=== PATIENT | male | born 1945 | race Two or more races ===

== ENCOUNTER 2022-03-11 13:36 | Inpatient (IN) | payer OTHER ==
[~2022-03-11] VITALS: Ht 170.2 cm; Wt 98.9 kg
[2022-03-11] MEDS ORDERED: ALBUTEROL SULF 2.5 MG/0.5ML(0.5%) NEB SOLN ONE (14:13)
[2022-03-11] MEDS ORDERED: IPRATROPIUM BROM 0.5 MG/2.5ML INH SOL ONE (14:13)
[2022-03-11] MEDS ORDERED: MAGNESIUM SULFATE 1GM/100ML 100 ML IV ONE (14:15)
[2022-03-11] MEDS ORDERED: VANCOMYCIN 1GM/250ML 250 ML IV ONE (14:15)
[2022-03-11] MEDS ORDERED: ALBUTEROL SULF 2.5 MG/0.5ML(0.5%) NEB SOLN NEB ONE (14:15)
[2022-03-11] MEDS ORDERED: CEFEPIME 1GM/ 50ML 50 ML IV ONE (14:15)
[2022-03-11] MEDS ORDERED: IPRATROPIUM BROM 0.5 MG/2.5ML INH SOL NEB ONE (14:15)
[2022-03-11] MEDS ORDERED: DexAMETHasone SOD PHOS 10MG/1ML VIAL INJ IV ONE (14:15)
[2022-03-11] MEDS: SODIUM CHLORIDE 0.9% 1,000 ML IV ONE ×4 (14:20→14:48)
[2022-03-11] MEDS: PHENYLEPHRINE IV 250 ML IV SCH ×2 (14:30→21:00)
[2022-03-11] MEDS ORDERED: PHENYLEPHRINE IV 250 ML IV ONE (14:33)
[2022-03-11 15:02] LABS: Hematocrit 42.4 % (41.0-53.0); Hemoglobin 13.2 g/dL (13.5-17.5); Mean Corpuscular Hemoglobin 27.9 pg (28.0-32.0); Mean Corpuscular Hgb Conc. 31.2 g/dL (32.0-36.0); Mean Corpuscular Volume 89.3 fL (80.0-100.0); Red Blood Cells 4.75 10^6/uL (4.5-5.90); Red Cell Distribution Width 15.4 % (11.8-14.3); White Blood Cell 16.1 10^3/uL (4.4-10.8)
[2022-03-11 15:24] LABS: Basophils % (manual) 0 (0.0-2.0); Blast Cells 0; Metamyelocytes % 0; Myelocytes % 0; Promyelocytes % 0; Reactive Lymphocytes 0
[2022-03-11 15:25] LABS: Albumin 1.6 g/dL (3.4-5.0); Anion Gap 19 (5-15); Calcium 8.7 mg/dL (8.5-10.1); Carbon Dioxide 14 mmol/L (21-32); Chloride 107 mmol/L (98-107); Glucose 241 mg/dL (74-106); Potassium 4.1 mmol/L (3.5-5.1); Sodium 140 mmol/L (136-145)
[2022-03-11 15:26] LABS: Free T3 0.92 pg/mL (2.3-4.2); Free T4 (Free Thyroxine) 0.6 ng/dL (0.89-1.76)
[2022-03-11 15:27] LABS: Alanine Aminotransferase 360 U/L (16-61); Aspartate Aminotransferase 510 U/L (15-37); GFR African American 14 mL/min; GFR Non-African American 12 mL/min
[2022-03-11 15:29] LABS: Alkaline Phosphatase 179 U/L (45-117); Bilirubin, Total 0.9 mg/dL (0.2-1.0); Total Protein 6.1 g/dL (6.4-8.2)
[2022-03-11 15:48] LABS: Lactic Acid w/Reflex 4.2 mmol/L (0.4-2.0)
[2022-03-11 15:53] LABS: Blood Urea Nitrogen 96 mg/dL (7-18)
[2022-03-11] MEDS ORDERED: AMIODARONE HCL 150 MG in D5W 5% 100 ML IV ONE (16:00)
[2022-03-11 17:03] LABS: Urine Blood 2+ /uL (Negative)
[2022-03-11] MEDS ORDERED: AMIODARONE 450mg/250ml AE 250 ML IV SCH (17:45)
[2022-03-11 17:53] LABS: Band Neutrophils % (manual) 25; Eosinophils % (manual) 1 (0-7); Lymphocytes % (manual) 12 (10.0-50.0); Monocytes % (manual) 5 (0-12)
[2022-03-11] MEDS ORDERED: MORPHINE SULFATE INJ 2 MG/ml SYRG IV PRN (18:30)
[2022-03-11] MEDS ORDERED: NITROGLYCERIN 0.4 MG SL TAB SL PRN (18:30)
[2022-03-11] MEDS ORDERED: AZITHROMYCIN 500MG/ 250ML 250 ML IV ONE (18:45)
[2022-03-11] MEDS: SODIUM CHLORIDE 0.9% 1,000 ML IV SCH (18:55)
[2022-03-11 19:00] LABS: INR 1.22 (0.9-1.15)
[2022-03-11] MEDS ORDERED: methylPREDNISolone SOD SUCC 125 MG/2 ML VL IV ONE (19:00)
[2022-03-11] MEDS ORDERED: IPRATROPIUM BROM 0.5 MG/2.5ML INH SOL NEB PRN (19:00)
[2022-03-11] MEDS ORDERED: DEXTROSE (50%) 50ML SYRG IV PRN (19:00)
[2022-03-11] MEDS ORDERED: FUROSEMIDE 40 MG/4 ML VIAL IV ONE (19:30)
[2022-03-11 19:39] LABS: Cholesterol 131 mg/dL (< 200); Triglycerides 699 mg/dL (< 150)
[2022-03-11 19:42] LABS: HDL Cholesterol 9 mg/dL (40-59)
[2022-03-11] MEDS ORDERED: DIGOXIN (250MCG/ML) 2 ML AMPULE IV ONE (20:15)
[2022-03-11 20:18] VITALS: BP 110/48
[2022-03-11 20:34] LABS: Lactic Acid w/Reflex 2.7 mmol/L (0.4-2.0)
[2022-03-11 21:35] LABS: INR 1.21 (0.9-1.15)
[2022-03-11] MEDS: IPRATROPIUM BROM 0.5 MG/2.5ML INH SOL NEB SCH (21:56)
[2022-03-11] MEDS: methylPREDNISolone SOD SUCC 125 MG/2 ML VL IV SCH (21:59)
[2022-03-11] MEDS ORDERED: ALBUTEROL SULF 2.5 MG/0.5ML(0.5%) NEB SOLN NEB SCH (22:00)
[2022-03-11] MEDS ORDERED: ETOMIDATE (2MG/ML) 20ML VIAL IV ONE (23:15)
[2022-03-11] MEDS ORDERED: ROCURONIUM 10MG/ML 10ML VIAL IV ONE (23:15)
[2022-03-11] MEDS ORDERED: MIDAZOLAM HCL 5 MG/ML-1ML VIAL IV ONE (23:15)
[2022-03-11 23:24] VITALS: BP 73/28
[2022-03-11] MEDS: MIDAZOLAM DRIP 50 mg/50mL 50 ML IV SCH (23:26)
[2022-03-11] MEDS: ENOXAPARIN SOD 100 MG/1 ML SYRINGE SC SCH (23:35)
[2022-03-11] MEDS: ACCU-CHEK COMFORT CURVE STRIP VI SCH (23:38)
[2022-03-11] MEDS: InsuLIN REG 1unit/0.01ml Soln (100units/ml) SC SCH (23:43)
[2022-03-12] VITALS (49 sets, daily range): BP systolic 88–154; BP diastolic 23–97
[2022-03-12] MEDS: PHENYLEPHRINE IV 250 ML IV SCH ×4 (00:44→16:02)
[2022-03-12] MEDS: AMIODARONE 450mg/250ml AE 250 ML IV SCH ×2 (01:01→16:01)
[2022-03-12] MEDS: SODIUM BICARBONATE 50ML VIAL 100 ML in SOD CHL 0.45% 1,000 ML IV SCH ×2 (03:30→14:58)
[2022-03-12 04:54] LABS: Hematocrit 35.9 % (41.0-53.0); Hemoglobin 11.2 g/dL (13.5-17.5); Mean Corpuscular Hgb Conc. 31.3 g/dL (32.0-36.0); Mean Corpuscular Volume 89.6 fL (80.0-100.0); Red Cell Distribution Width 15.9 % (11.8-14.3); White Blood Cell 26.7 10^3/uL (4.4-10.8)
[2022-03-12 04:58] LABS: Basophils % (manual) 0 (0.0-2.0); Blast Cells 0; Eosinophils % (manual) 0 (0-7); Metamyelocytes % 0; Promyelocytes % 0; Reactive Lymphocytes 0
[2022-03-12] MEDS: MIDAZOLAM DRIP 50 mg/50mL 50 ML IV SCH ×2 (05:06→16:02)
[2022-03-12 05:16] LABS: Albumin 1.5 g/dL (3.4-5.0); Calcium 7.5 mg/dL (8.5-10.1); Potassium 4.9 mmol/L (3.5-5.1)
[2022-03-12 05:19] LABS: BUN/Creatinine Ratio 22.8
[2022-03-12 05:30] LABS: Bilirubin, Total 0.9 mg/dL (0.2-1.0); Total Protein 4.7 g/dL (6.4-8.2)
[2022-03-12 06:52] LABS: Band Neutrophils % (manual) 34; Lymphocytes % (manual) 10 (10.0-50.0); Monocytes % (manual) 3 (0-12); Myelocytes % 2
[2022-03-12] MEDS ORDERED: AMIODARONE 450mg/250ml AE 250 ML IV SCH (07:00)
[2022-03-12] MEDS: SODIUM CHLORIDE 0.9% 1,000 ML IV SCH (07:35)
[2022-03-12] MEDS ORDERED: cefTRIAXone 1GM/50ML D5W 50 ML IV SCH (09:00)
[2022-03-12] MEDS ORDERED: AZITHROMYCIN 500MG/ 250ML 250 ML IV SCH (10:00)
[2022-03-12] MEDS: InsuLIN REG 1unit/0.01ml Soln (100units/ml) SC SCH ×2 (10:43→17:36)
[2022-03-12] MEDS: ACCU-CHEK COMFORT CURVE STRIP VI SCH ×3 (10:43→17:12)
[2022-03-12] MEDS: methylPREDNISolone SOD SUCC 125 MG/2 ML VL IV SCH (10:44)
[2022-03-12] MEDS ORDERED: SODIUM BICARBONATE 50ML VIAL 100 ML in SOD CHL 0.45% 1,000 ML IV SCH (12:00)
[2022-03-12] MEDS ORDERED: MEROPENEM 1GM IVPB 100 ML IV ONE (12:15)
[2022-03-12] MEDS ORDERED: PANTOPRAZOLE 40 MG/10 ML VIAL INJ IV ONE (12:15)
[2022-03-12] MEDS ORDERED: DEXTROSE (50%) 50ML SYRG IV PRN (12:15)
[2022-03-12] MEDS: LINEZOLID 600MG/300ML 300 ML IV SCH ×2 (12:52→22:04)
[2022-03-12] MEDS: DOPamine 1600MCG/ML D5W 250 ML IV SCH (12:53)
[2022-03-12 12:56] LABS: Alcohol, Urine < 3.0 mg/dL (0-10); Amphetamine Screen, Urine NEGATIVE (NEGATIVE); Barbiturate Scree,Urine NEGATIVE (NEGATIVE); Benzodiazephine Screen, Urine POSITIVE (NEGATIVE); Cannabinoid Screen, Urine NEGATIVE (NEGATIVE); Cocaine Screen, Urine NEGATIVE (NEGATIVE); Opiate Scree,Urine NEGATIVE (NEGATIVE); Phencyclidine Screen, Urine NEGATIVE (NEGATIVE)
[2022-03-12 14:14] LABS: Protein, Urine 213.2 mg/dL (0.0-11.9)
[2022-03-12] MEDS: OCTREOTIDE ACETATE 100 MCG/ML VL SUBCUT SCH ×2 (14:58→22:05)
[2022-03-12] MEDS: IPRATROPIUM BROM 0.5 MG/2.5ML INH SOL NEB SCH ×4 (16:57→22:17)
[2022-03-12] MEDS: ALBUTEROL SULF 2.5 MG/0.5ML(0.5%) NEB SOLN NEB PRN ×2 (19:05→22:17)
[2022-03-12] MEDS: MEROPENEM 1GM IVPB 100 ML IV SCH (22:03)
[2022-03-12] MEDS: ENOXAPARIN SOD 100 MG/1 ML SYRINGE SC SCH (22:04)
[2022-03-13] VITALS (90 sets, daily range): BP systolic 86–155; BP diastolic 51–86
[2022-03-13] MEDS: ACCU-CHEK COMFORT CURVE STRIP VI SCH ×5 (00:29→23:45)
[2022-03-13] MEDS: InsuLIN REG 1unit/0.01ml Soln (100units/ml) SC SCH ×5 (00:30→23:45)
[2022-03-13] MEDS: MIDAZOLAM DRIP 50 mg/50mL 50 ML IV SCH ×3 (02:00→20:00)
[2022-03-13] MEDS: SODIUM BICARBONATE 50ML VIAL 100 ML in SOD CHL 0.45% 1,000 ML IV SCH ×3 (04:00→18:09)
[2022-03-13] MEDS: PHENYLEPHRINE IV 250 ML IV SCH (05:00)
[2022-03-13] MEDS: OCTREOTIDE ACETATE 100 MCG/ML VL SUBCUT SCH ×3 (05:34→22:00)
[2022-03-13] MEDS: AMIODARONE 450mg/250ml AE 250 ML IV SCH (05:34)
[2022-03-13 05:47] LABS: Mean Corpuscular Hemoglobin 28.2 pg (28.0-32.0); Mean Corpuscular Hgb Conc. 32.2 g/dL (32.0-36.0); Mean Corpuscular Volume 87.6 fL (80.0-100.0); Red Blood Cells 3.88 10^6/uL (4.5-5.90); Red Cell Distribution Width 15.5 % (11.8-14.3); White Blood Cell 23.7 10^3/uL (4.4-10.8)
[2022-03-13 05:58] LABS: Basophils % (manual) 0 (0.0-2.0); Blast Cells 0; Eosinophils % (manual) 0 (0-7); Promyelocytes % 0; Reactive Lymphocytes 0
[2022-03-13] MEDS: IPRATROPIUM BROM 0.5 MG/2.5ML INH SOL NEB SCH ×5 (06:22→22:06)
[2022-03-13 06:33] LABS: Albumin 1.3 g/dL (3.4-5.0); BUN/Creatinine Ratio 32.1; Bilirubin, Total 0.7 mg/dL (0.2-1.0); Calcium 6.9 mg/dL (8.5-10.1); Total Protein 4.4 g/dL (6.4-8.2)
[2022-03-13 07:28] LABS: Band Neutrophils % (manual) 13; Lymphocytes % (manual) 15 (10.0-50.0); Metamyelocytes % 1; Monocytes % (manual) 2 (0-12); Myelocytes % 2
[2022-03-13] MEDS: NOREPINEPHRINE 8 MG/250ML KIT 250 ML IV SCH (09:17)
[2022-03-13] MEDS: MEROPENEM 1GM IVPB 100 ML IV SCH ×2 (09:17→23:12)
[2022-03-13] MEDS ORDERED: INSULIN LANTUS (GLARGINE) 1 /0.01ml (100units/ml) SC ONE (10:00)
[2022-03-13] MEDS: ALBUTEROL SULF 2.5 MG/0.5ML(0.5%) NEB SOLN NEB PRN ×3 (10:09→22:07)
[2022-03-13] MEDS: PANTOPRAZOLE 40 MG/10 ML VIAL INJ IV SCH (10:17)
[2022-03-13] MEDS: LINEZOLID 600MG/300ML 300 ML IV SCH ×2 (10:17→22:00)
[2022-03-13] MEDS: ALBUMIN 25% 100 ML IV SCH ×2 (10:19→17:27)
[2022-03-13] MEDS: DOPamine 1600MCG/ML D5W 250 ML IV SCH ×2 (11:30→20:00)
[2022-03-13] MEDS: CALCIUM ACETATE 667 MG CAP PO SCH ×2 (12:21→17:27)
[2022-03-13 13:48] LABS: Hepatitis B Surface Antibody Negative (Negative)
[2022-03-13 14:17] LABS: Hepatitis A Total Antibody Negative (Negative)
[2022-03-13 14:38] LABS: Hepatitis C Antibody Negative (Negative)
[2022-03-13] MEDS: INSULIN LANTUS (GLARGINE) 1 /0.01ml (100units/ml) SC SCH (22:00)
[2022-03-13] MEDS: ENOXAPARIN SOD 100 MG/1 ML SYRINGE SC SCH (22:00)
[2022-03-14] VITALS (107 sets, daily range): BP systolic 84–158; BP diastolic 47–88
[2022-03-14] MEDS ORDERED: ALBUMIN 25% 100 ML IV ONE (02:23)
[2022-03-14] MEDS: ALBUMIN 25% 100 ML IV SCH (02:23)
[2022-03-14 05:34] LABS: Hematocrit 29.4 % (41.0-53.0); Hemoglobin 9.7 g/dL (13.5-17.5); Mean Corpuscular Hemoglobin 28.5 pg (28.0-32.0); Mean Corpuscular Hgb Conc. 32.9 g/dL (32.0-36.0); Mean Corpuscular Volume 86.6 fL (80.0-100.0); Red Blood Cells 3.39 10^6/uL (4.5-5.90); Red Cell Distribution Width 15.8 % (11.8-14.3); White Blood Cell 24.7 10^3/uL (4.4-10.8)
[2022-03-14 05:38] LABS: Basophils % (manual) 0 (0.0-2.0); Blast Cells 0; Eosinophils % (manual) 0 (0-7); Metamyelocytes % 0; Promyelocytes % 0; Reactive Lymphocytes 0
[2022-03-14] MEDS: ACCU-CHEK COMFORT CURVE STRIP VI SCH ×3 (05:48→17:38)
[2022-03-14] MEDS: InsuLIN REG 1unit/0.01ml Soln (100units/ml) SC SCH ×3 (05:52→17:39)
[2022-03-14 05:54] LABS: Albumin 2.6 g/dL (3.4-5.0); BUN/Creatinine Ratio 34.8; Calcium 7.7 mg/dL (8.5-10.1); Potassium 3.1 mmol/L (3.5-5.1)
[2022-03-14 05:57] LABS: Bilirubin, Total 0.9 mg/dL (0.2-1.0); Total Protein 5.9 g/dL (6.4-8.2)
[2022-03-14] MEDS: IPRATROPIUM BROM 0.5 MG/2.5ML INH SOL NEB SCH ×5 (06:08→22:31)
[2022-03-14 06:11] LABS: Band Neutrophils % (manual) 4; Lymphocytes % (manual) 15 (10.0-50.0); Monocytes % (manual) 2 (0-12); Myelocytes % 1
[2022-03-14] MEDS: OCTREOTIDE ACETATE 100 MCG/ML VL SUBCUT SCH (06:18)
[2022-03-14] MEDS: INSULIN LANTUS (GLARGINE) 1 /0.01ml (100units/ml) SC SCH ×2 (06:18→21:45)
[2022-03-14] MEDS: SODIUM BICARBONATE 50ML VIAL 100 ML in SOD CHL 0.45% 1,000 ML IV SCH ×2 (06:45→13:43)
[2022-03-14] MEDS: MIDAZOLAM DRIP 50 mg/50mL 50 ML IV SCH ×2 (06:45→15:54)
[2022-03-14] MEDS: CALCIUM ACETATE 667 MG CAP PO SCH ×3 (08:00→17:24)
[2022-03-14] MEDS: NOREPINEPHRINE 8 MG/250ML KIT 250 ML IV SCH ×2 (09:00→23:15)
[2022-03-14] MEDS: PHENYLEPHRINE IV 250 ML IV SCH ×2 (09:10→09:30)
[2022-03-14] MEDS: AMIODARONE 450mg/250ml AE 250 ML IV SCH ×2 (09:30→10:51)
[2022-03-14] MEDS: PANTOPRAZOLE 40 MG/10 ML VIAL INJ IV SCH (09:33)
[2022-03-14] MEDS: LINEZOLID 600MG/300ML 300 ML IV SCH (09:33)
[2022-03-14] MEDS ORDERED: POTASSIUM CHL 20MEQ/100ML 100 ML IV ONE (10:45)
[2022-03-14] MEDS: MEROPENEM 1GM IVPB 100 ML IV SCH (10:50)
[2022-03-14] MEDS ORDERED: LABETALOL HCL 5 MG/ML 4ML SYRINGE IV PRN (12:30)
[2022-03-14] MEDS: POTASSIUM CHL 20MEQ/100ML 100 ML IV SCH ×2 (13:43→14:30)
[2022-03-14] MEDS: Nepro With Carb Steady 1 Liter Bottle GT SCH (15:09)
[2022-03-14] MEDS: ALBUTEROL SULF 2.5 MG/0.5ML(0.5%) NEB SOLN NEB PRN ×2 (18:21→22:31)
[2022-03-14] MEDS: MEROPENEM 500MG IVPB 50 ML IV SCH (21:48)
[2022-03-14] MEDS: ENOXAPARIN SOD 100 MG/1 ML SYRINGE SC SCH (21:48)
[2022-03-15] VITALS (101 sets, daily range): BP systolic 90–127; BP diastolic 38–73
[2022-03-15] MEDS: ACCU-CHEK COMFORT CURVE STRIP VI SCH ×5 (00:02→23:59)
[2022-03-15] MEDS: InsuLIN REG 1unit/0.01ml Soln (100units/ml) SC SCH ×4 (00:10→17:43)
[2022-03-15] MEDS: MIDAZOLAM DRIP 50 mg/50mL 50 ML IV SCH ×3 (02:30→16:20)
[2022-03-15 05:36] LABS: Hematocrit 34.3 % (41.0-53.0); Hemoglobin 10.8 g/dL (13.5-17.5); Mean Corpuscular Hemoglobin 27.4 pg (28.0-32.0); Mean Corpuscular Hgb Conc. 31.6 g/dL (32.0-36.0); Mean Corpuscular Volume 86.9 fL (80.0-100.0); Red Blood Cells 3.95 10^6/uL (4.5-5.90); Red Cell Distribution Width 15.5 % (11.8-14.3)
[2022-03-15] MEDS: IPRATROPIUM BROM 0.5 MG/2.5ML INH SOL NEB SCH ×5 (05:53→22:22)
[2022-03-15] MEDS: ALBUTEROL SULF 2.5 MG/0.5ML(0.5%) NEB SOLN NEB PRN ×2 (05:53→18:30)
[2022-03-15 05:59] LABS: Potassium 3.5 mmol/L (3.5-5.1)
[2022-03-15] MEDS: DOPamine 1600MCG/ML D5W 250 ML IV SCH (06:02)
[2022-03-15 06:11] LABS: Albumin 2.1 g/dL (3.4-5.0); BUN/Creatinine Ratio 45.8; Bilirubin, Total 1.3 mg/dL (0.2-1.0); Calcium 8.2 mg/dL (8.5-10.1); Total Protein 5.7 g/dL (6.4-8.2)
[2022-03-15 06:19] LABS: Basophils % (manual) 0 (0.0-2.0); Blast Cells 0; Eosinophils % (manual) 0 (0-7); Monocytes % (manual) 0 (0-12); Promyelocytes % 0; Reactive Lymphocytes 0
[2022-03-15] MEDS: INSULIN LANTUS (GLARGINE) 1 /0.01ml (100units/ml) SC SCH ×2 (06:59→22:15)
[2022-03-15 09:16] LABS: Band Neutrophils % (manual) 19; Lymphocytes % (manual) 20 (10.0-50.0); Metamyelocytes % 1; Myelocytes % 1
[2022-03-15] MEDS: PANTOPRAZOLE 40 MG/10 ML VIAL INJ IV SCH (09:37)
[2022-03-15] MEDS: CALCIUM ACETATE 667 MG CAP PO SCH ×3 (09:38→17:54)
[2022-03-15] MEDS: MEROPENEM 500MG IVPB 50 ML IV SCH ×2 (09:38→21:38)
[2022-03-15] MEDS: SODIUM BICARBONATE 50ML VIAL 100 ML in SOD CHL 0.45% 1,000 ML IV SCH ×2 (10:30→19:10)
[2022-03-15] MEDS: ENOXAPARIN SOD 100 MG/1 ML SYRINGE SC SCH (21:39)
[2022-03-16] VITALS (103 sets, daily range): BP systolic 91–127; BP diastolic 48–69
[2022-03-16] MEDS: InsuLIN REG 1unit/0.01ml Soln (100units/ml) SC SCH ×5 (00:15→23:57)
[2022-03-16] MEDS: MIDAZOLAM DRIP 50 mg/50mL 50 ML IV SCH ×2 (02:45→14:15)
[2022-03-16 05:21] LABS: Hemoglobin 9.9 g/dL (13.5-17.5); Mean Corpuscular Hemoglobin 27.6 pg (28.0-32.0); Mean Corpuscular Hgb Conc. 32.1 g/dL (32.0-36.0); Mean Corpuscular Volume 86.2 fL (80.0-100.0); Red Cell Distribution Width 15.4 % (11.8-14.3); White Blood Cell 25.2 10^3/uL (4.4-10.8)
[2022-03-16 05:27] LABS: Basophils % (manual) 0 (0.0-2.0); Blast Cells 0; Eosinophils % (manual) 0 (0-7); Metamyelocytes % 0; Promyelocytes % 0; Reactive Lymphocytes 0
[2022-03-16 05:44] LABS: Albumin 1.8 g/dL (3.4-5.0); BUN/Creatinine Ratio 55.5; Calcium 8.5 mg/dL (8.5-10.1); Potassium 3.6 mmol/L (3.5-5.1)
[2022-03-16 05:47] LABS: Total Protein 5.4 g/dL (6.4-8.2)
[2022-03-16] MEDS: ACCU-CHEK COMFORT CURVE STRIP VI SCH ×4 (06:00→23:54)
[2022-03-16] MEDS: IPRATROPIUM BROM 0.5 MG/2.5ML INH SOL NEB SCH ×5 (06:21→22:16)
[2022-03-16] MEDS: ALBUTEROL SULF 2.5 MG/0.5ML(0.5%) NEB SOLN NEB PRN ×4 (06:21→22:16)
[2022-03-16] MEDS: INSULIN LANTUS (GLARGINE) 1 /0.01ml (100units/ml) SC SCH ×2 (06:28→22:19)
[2022-03-16] MEDS: NOREPINEPHRINE 8 MG/250ML KIT 250 ML IV SCH (09:00)
[2022-03-16] MEDS: PANTOPRAZOLE 40 MG/10 ML VIAL INJ IV SCH (10:17)
[2022-03-16] MEDS: CALCIUM ACETATE 667 MG CAP PO SCH ×3 (10:17→18:03)
[2022-03-16] MEDS: MEROPENEM 500MG IVPB 50 ML IV SCH ×2 (10:18→22:16)
[2022-03-16 10:28] LABS: Band Neutrophils % (manual) 27; Lymphocytes % (manual) 7 (10.0-50.0); Monocytes % (manual) 2 (0-12); Myelocytes % 1
[2022-03-16] MEDS: DOPamine 1600MCG/ML D5W 250 ML IV SCH ×2 (11:30→18:39)
[2022-03-16] MEDS: D5W 5% 1,000 ML IV SCH ×2 (12:46→23:50)
[2022-03-16] MEDS: Nepro With Carb Steady 1 Liter Bottle GT SCH (21:09)
[2022-03-16] MEDS: ENOXAPARIN SOD 100 MG/1 ML SYRINGE SC SCH (22:16)
[2022-03-17] VITALS (104 sets, daily range): BP systolic 83–127; BP diastolic 36–64
[2022-03-17] MEDS: MIDAZOLAM DRIP 50 mg/50mL 50 ML IV SCH ×2 (00:53→09:25)
[2022-03-17] MEDS: D5W 5% 1,000 ML IV SCH (02:14)
[2022-03-17] MEDS: IPRATROPIUM BROM 0.5 MG/2.5ML INH SOL NEB SCH ×5 (06:27→22:53)
[2022-03-17] MEDS: ALBUTEROL SULF 2.5 MG/0.5ML(0.5%) NEB SOLN NEB PRN ×5 (06:27→22:52)
[2022-03-17] MEDS: ACCU-CHEK COMFORT CURVE STRIP VI SCH ×3 (06:29→17:39)
[2022-03-17] MEDS: InsuLIN REG 1unit/0.01ml Soln (100units/ml) SC SCH ×3 (06:37→17:39)
[2022-03-17] MEDS: INSULIN LANTUS (GLARGINE) 1 /0.01ml (100units/ml) SC SCH ×2 (06:49→23:00)
[2022-03-17] MEDS: CALCIUM ACETATE 667 MG CAP PO SCH ×3 (08:17→18:25)
[2022-03-17] MEDS: NOREPINEPHRINE 8 MG/250ML KIT 250 ML IV SCH (09:00)
[2022-03-17] MEDS: MEROPENEM 500MG IVPB 50 ML IV SCH ×2 (09:24→22:00)
[2022-03-17] MEDS: PANTOPRAZOLE 40 MG/10 ML VIAL INJ IV SCH (09:24)
[2022-03-17 14:59] LABS: INR 1.1 (0.9-1.15); Partial Thromboplastin Time 29.4 sec (24.6-33.4)
[2022-03-17] MEDS: FREE WATER GT SCH ×2 (18:26→22:53)
[2022-03-17] MEDS ORDERED: LIDOCAINE 1% (LOCAL ANESTH.) PF 5ml SDV ID ONE (18:45)
[2022-03-17] MEDS: ENOXAPARIN SOD 100 MG/1 ML SYRINGE SC SCH (22:00)
[2022-03-17] MEDS: SODIUM CHLOR 0.9% PF (SALINE LOCK) 10ML VIAL/SYR IV SCH (22:21)
[2022-03-18] VITALS (104 sets, daily range): BP systolic 92–166; BP diastolic 40–62
[2022-03-18] MEDS: MEROPENEM 500MG IVPB 50 ML IV SCH ×2 (00:42→09:22)
[2022-03-18] MEDS: FREE WATER GT SCH ×4 (06:00→23:46)
[2022-03-18] MEDS: ACCU-CHEK COMFORT CURVE STRIP VI SCH ×4 (06:00→17:24)
[2022-03-18] MEDS: ALBUTEROL SULF 2.5 MG/0.5ML(0.5%) NEB SOLN NEB PRN ×4 (06:17→22:35)
[2022-03-18] MEDS: IPRATROPIUM BROM 0.5 MG/2.5ML INH SOL NEB SCH ×5 (06:17→22:35)
[2022-03-18] MEDS: INSULIN LANTUS (GLARGINE) 1 /0.01ml (100units/ml) SC SCH ×2 (07:00→23:00)
[2022-03-18] MEDS: InsuLIN REG 1unit/0.01ml Soln (100units/ml) SC SCH ×4 (07:00→17:24)
[2022-03-18 08:08] LABS: Hematocrit 31.2 % (41.0-53.0); Hemoglobin 9.8 g/dL (13.5-17.5); Mean Corpuscular Hemoglobin 27.6 pg (28.0-32.0); Mean Corpuscular Hgb Conc. 31.2 g/dL (32.0-36.0); Mean Corpuscular Volume 88.3 fL (80.0-100.0); Red Blood Cells 3.54 10^6/uL (4.5-5.90); Red Cell Distribution Width 15.6 % (11.8-14.3); White Blood Cell 24.1 10^3/uL (4.4-10.8)
[2022-03-18 08:24] LABS: BUN/Creatinine Ratio 55.9; Calcium 8.7 mg/dL (8.5-10.1); Potassium 4.2 mmol/L (3.5-5.1)
[2022-03-18 08:25] LABS: Basophils % (manual) 0 (0.0-2.0); Blast Cells 0; Eosinophils % (manual) 0 (0-7); Metamyelocytes % 0; Myelocytes % 0; Promyelocytes % 0; Reactive Lymphocytes 0
[2022-03-18] MEDS: CALCIUM ACETATE 667 MG CAP PO SCH ×3 (08:50→17:27)
[2022-03-18] MEDS: NOREPINEPHRINE 8 MG/250ML KIT 250 ML IV SCH ×2 (09:00→13:39)
[2022-03-18 09:18] LABS: Band Neutrophils % (manual) 4; Lymphocytes % (manual) 8 (10.0-50.0); Monocytes % (manual) 7 (0-12)
[2022-03-18] MEDS: PANTOPRAZOLE 40 MG/10 ML VIAL INJ IV SCH (09:22)
[2022-03-18] MEDS: SODIUM CHLOR 0.9% PF (SALINE LOCK) 10ML VIAL/SYR IV SCH ×2 (09:22→22:07)
[2022-03-18] MEDS: DOPamine 1600MCG/ML D5W 250 ML IV SCH (11:30)
[2022-03-18] MEDS: D5W 5% 1,000 ML IV SCH (12:30)
[2022-03-18] MEDS: CEFTRIAXONE SODIUM 2 GM in D5W 5% 50 ML IV SCH (13:34)
[2022-03-18] MEDS: ENOXAPARIN SOD 100 MG/1 ML SYRINGE SC SCH (22:00)
[2022-03-18] MEDS: MIDAZOLAM DRIP 50 mg/50mL 50 ML IV SCH (22:35)
[2022-03-19] VITALS (102 sets, daily range): BP systolic 97–133; BP diastolic 51–66
[2022-03-19] MEDS: ACCU-CHEK COMFORT CURVE STRIP VI SCH ×5 (00:20→23:34)
[2022-03-19 05:21] LABS: Hematocrit 30.7 % (41.0-53.0); Hemoglobin 9.7 g/dL (13.5-17.5); Mean Corpuscular Hemoglobin 28.1 pg (28.0-32.0); Mean Corpuscular Hgb Conc. 31.7 g/dL (32.0-36.0); Mean Corpuscular Volume 88.8 fL (80.0-100.0); Red Blood Cells 3.46 10^6/uL (4.5-5.90); Red Cell Distribution Width 15.5 % (11.8-14.3); White Blood Cell 22.6 10^3/uL (4.4-10.8)
[2022-03-19 05:35] LABS: BUN/Creatinine Ratio 53.5; Calcium 8.9 mg/dL (8.5-10.1)
[2022-03-19 05:46] LABS: Basophils % (manual) 0 (0.0-2.0); Blast Cells 0; Promyelocytes % 0
[2022-03-19] MEDS: FREE WATER GT SCH ×4 (06:00→23:46)
[2022-03-19] MEDS: ALBUTEROL SULF 2.5 MG/0.5ML(0.5%) NEB SOLN NEB PRN ×5 (06:17→22:20)
[2022-03-19] MEDS: IPRATROPIUM BROM 0.5 MG/2.5ML INH SOL NEB SCH ×5 (06:17→22:20)
[2022-03-19] MEDS: InsuLIN REG 1unit/0.01ml Soln (100units/ml) SC SCH ×5 (07:15→23:34)
[2022-03-19] MEDS: INSULIN LANTUS (GLARGINE) 1 /0.01ml (100units/ml) SC SCH ×2 (07:15→21:42)
[2022-03-19 07:48] LABS: Band Neutrophils % (manual) 8; Eosinophils % (manual) 2 (0-7); Lymphocytes % (manual) 7 (10.0-50.0); Metamyelocytes % 1; Monocytes % (manual) 4 (0-12); Myelocytes % 1; Reactive Lymphocytes 2
[2022-03-19] MEDS: D5W 5% 1,000 ML IV SCH (08:00)
[2022-03-19] MEDS: SODIUM CHLOR 0.9% PF (SALINE LOCK) 10ML VIAL/SYR IV SCH ×2 (10:06→21:42)
[2022-03-19] MEDS: CALCIUM ACETATE 667 MG CAP PO SCH ×3 (10:10→17:34)
[2022-03-19] MEDS: PANTOPRAZOLE 40 MG/10 ML VIAL INJ IV SCH (10:10)
[2022-03-19] MEDS: DOPamine 1600MCG/ML D5W 250 ML IV SCH ×2 (11:27→12:30)
[2022-03-19] MEDS: CEFTRIAXONE SODIUM 2 GM in D5W 5% 50 ML IV SCH (14:31)
[2022-03-19] MEDS: Nepro With Carb Steady 1 Liter Bottle GT SCH (15:26)
[2022-03-19] MEDS: MIDAZOLAM DRIP 50 mg/50mL 50 ML IV SCH (20:53)
[2022-03-19] MEDS: ENOXAPARIN SOD 100 MG/1 ML SYRINGE SC SCH (21:41)
[2022-03-20] VITALS (107 sets, daily range): BP systolic 85–126; BP diastolic 41–65
[2022-03-20] MEDS: D5W 5% 1,000 ML IV SCH ×2 (02:31→21:11)
[2022-03-20] MEDS: MIDAZOLAM DRIP 50 mg/50mL 50 ML IV SCH ×3 (02:32→23:40)
[2022-03-20 05:18] LABS: Hematocrit 28.7 % (41.0-53.0); Mean Corpuscular Hemoglobin 27.9 pg (28.0-32.0); Mean Corpuscular Hgb Conc. 31.3 g/dL (32.0-36.0); Mean Corpuscular Volume 89.3 fL (80.0-100.0); Red Blood Cells 3.22 10^6/uL (4.5-5.90); Red Cell Distribution Width 15.5 % (11.8-14.3); White Blood Cell 16.5 10^3/uL (4.4-10.8)
[2022-03-20 05:34] LABS: Albumin 1.4 g/dL (3.4-5.0); Calcium 8.5 mg/dL (8.5-10.1); Potassium 3.8 mmol/L (3.5-5.1)
[2022-03-20 05:38] LABS: BUN/Creatinine Ratio 50.7; Bilirubin, Total 0.6 mg/dL (0.2-1.0); Total Protein 5.6 g/dL (6.4-8.2)
[2022-03-20 05:39] LABS: Basophils % (manual) 0 (0.0-2.0); Blast Cells 0; Reactive Lymphocytes 0
[2022-03-20] MEDS: IPRATROPIUM BROM 0.5 MG/2.5ML INH SOL NEB SCH ×3 (05:54→13:48)
[2022-03-20] MEDS: ALBUTEROL SULF 2.5 MG/0.5ML(0.5%) NEB SOLN NEB PRN ×3 (05:54→13:48)
[2022-03-20] MEDS: InsuLIN REG 1unit/0.01ml Soln (100units/ml) SC SCH ×3 (06:21→18:23)
[2022-03-20] MEDS: ACCU-CHEK COMFORT CURVE STRIP VI SCH ×3 (06:21→18:18)
[2022-03-20] MEDS: INSULIN LANTUS (GLARGINE) 1 /0.01ml (100units/ml) SC SCH ×2 (06:22→21:10)
[2022-03-20] MEDS: FREE WATER GT SCH ×4 (06:22→23:41)
[2022-03-20 07:46] LABS: Band Neutrophils % (manual) 12; Eosinophils % (manual) 4 (0-7); Lymphocytes % (manual) 20 (10.0-50.0); Metamyelocytes % 1; Monocytes % (manual) 3 (0-12); Myelocytes % 1; Promyelocytes % 1
[2022-03-20] MEDS: NOREPINEPHRINE 8 MG/250ML KIT 250 ML IV SCH (08:48)
[2022-03-20] MEDS: SODIUM CHLOR 0.9% PF (SALINE LOCK) 10ML VIAL/SYR IV SCH ×2 (08:48→21:10)
[2022-03-20] MEDS: CALCIUM ACETATE 667 MG CAP PO SCH ×3 (08:48→18:24)
[2022-03-20] MEDS: ENOXAPARIN SOD 100 MG/1 ML SYRINGE SC SCH ×2 (08:48→21:09)
[2022-03-20] MEDS: PANTOPRAZOLE 40 MG/10 ML VIAL INJ IV SCH (08:48)
[2022-03-20] MEDS: CEFTRIAXONE SODIUM 2 GM in D5W 5% 50 ML IV SCH (15:10)
[2022-03-20] MEDS: DOPamine 1600MCG/ML D5W 250 ML IV SCH (23:40)
[2022-03-21] VITALS (106 sets, daily range): BP systolic 79–125; BP diastolic 40–64
[2022-03-21] MEDS: InsuLIN REG 1unit/0.01ml Soln (100units/ml) SC SCH ×4 (00:20→23:51)
[2022-03-21] MEDS: ACCU-CHEK COMFORT CURVE STRIP VI SCH ×4 (00:20→23:51)
[2022-03-21] MEDS: NOREPINEPHRINE 8 MG/250ML KIT 250 ML IV SCH (03:16)
[2022-03-21 04:54] LABS: Basophils # (auto) 0.2 10 ^3/uL (0-0.2); Basophils % (auto) 1.1 % (0.0-2.0); Eosinophils # (auto) 0.3 10 ^3/uL (0-0.8); Hematocrit 28.9 % (41.0-53.0); Hemoglobin 9.1 g/dL (13.5-17.5); Lymphocytes # (auto) 2.2 10 ^3/uL (0.4-5.4); Lymphocytes % (auto) 13.7 % (10.0-50.0); Mean Corpuscular Hgb Conc. 31.4 g/dL (32.0-36.0); Mean Corpuscular Volume 89.1 fL (80.0-100.0); Monocytes # (auto) 0.9 10 ^3/uL (0-1.3); Monocytes % (auto) 5.7 % (0.0-12.0); Neutrophils # (auto) 12.7 10 ^3/uL (1.6-8.6); Neutrophils % (auto) 77.5 % (37.0-80.0); Red Blood Cells 3.24 10^6/uL (4.5-5.90); Red Cell Distribution Width 15.7 % (11.8-14.3); White Blood Cell 16.4 10^3/uL (4.4-10.8)
[2022-03-21 05:11] LABS: BUN/Creatinine Ratio 43.8; Calcium 8.4 mg/dL (8.5-10.1); Potassium 3.6 mmol/L (3.5-5.1)
[2022-03-21] MEDS: FREE WATER GT SCH ×3 (05:51→17:41)
[2022-03-21] MEDS: ALBUTEROL SULF 2.5 MG/0.5ML(0.5%) NEB SOLN NEB PRN ×5 (05:58→21:57)
[2022-03-21] MEDS: IPRATROPIUM BROM 0.5 MG/2.5ML INH SOL NEB SCH ×5 (05:58→21:57)
[2022-03-21] MEDS: INSULIN LANTUS (GLARGINE) 1 /0.01ml (100units/ml) SC SCH ×2 (06:00→21:37)
[2022-03-21] MEDS: PANTOPRAZOLE 40 MG/10 ML VIAL INJ IV SCH (09:41)
[2022-03-21] MEDS: ENOXAPARIN SOD 100 MG/1 ML SYRINGE SC SCH ×2 (09:41→21:37)
[2022-03-21] MEDS: CALCIUM ACETATE 667 MG CAP PO SCH ×2 (09:42→12:00)
[2022-03-21] MEDS: SODIUM CHLOR 0.9% PF (SALINE LOCK) 10ML VIAL/SYR IV SCH ×2 (09:42→21:37)
[2022-03-21] MEDS ORDERED: levoFLOXacin 500MG 100 ML IV ONE (12:30)
[2022-03-21] MEDS: CEFTRIAXONE SODIUM 2 GM in D5W 5% 50 ML IV SCH (13:48)
[2022-03-22] VITALS (108 sets, daily range): BP systolic 90–121; BP diastolic 43–82
[2022-03-22] MEDS: FREE WATER GT SCH ×4 (00:12→18:01)
[2022-03-22] MEDS: MIDAZOLAM DRIP 50 mg/50mL 50 ML IV SCH (02:12)
[2022-03-22 05:19] LABS: Basophils # (auto) 0.2 10 ^3/uL (0-0.2); Basophils % (auto) 1.4 % (0.0-2.0); Eosinophils # (auto) 0.1 10 ^3/uL (0-0.8); Eosinophils % (auto) 0.7 % (0.0-7.0); Hematocrit 29.7 % (41.0-53.0); Hemoglobin 9.7 g/dL (13.5-17.5); Lymphocytes # (auto) 1.6 10 ^3/uL (0.4-5.4); Lymphocytes % (auto) 11.9 % (10.0-50.0); Mean Corpuscular Hemoglobin 28.6 pg (28.0-32.0); Mean Corpuscular Hgb Conc. 32.6 g/dL (32.0-36.0); Mean Corpuscular Volume 87.7 fL (80.0-100.0); Monocytes # (auto) 0.7 10 ^3/uL (0-1.3); Neutrophils # (auto) 11.1 10 ^3/uL (1.6-8.6); Nucleated Red Blood Cells % 0.2 %; Red Blood Cells 3.39 10^6/uL (4.5-5.90); Red Cell Distribution Width 15.3 % (11.8-14.3); White Blood Cell 13.7 10^3/uL (4.4-10.8)
[2022-03-22 05:32] LABS: BUN/Creatinine Ratio 40.3; Calcium 8.3 mg/dL (8.5-10.1)
[2022-03-22] MEDS: ACCU-CHEK COMFORT CURVE STRIP VI SCH ×3 (05:59→17:37)
[2022-03-22] MEDS: InsuLIN REG 1unit/0.01ml Soln (100units/ml) SC SCH ×3 (05:59→17:37)
[2022-03-22] MEDS: INSULIN LANTUS (GLARGINE) 1 /0.01ml (100units/ml) SC SCH ×2 (06:00→22:00)
[2022-03-22] MEDS: IPRATROPIUM BROM 0.5 MG/2.5ML INH SOL NEB SCH ×5 (06:21→21:52)
[2022-03-22] MEDS: CALCIUM ACETATE 667 MG CAP PO SCH ×3 (08:26→18:01)
[2022-03-22] MEDS: NOREPINEPHRINE 8 MG/250ML KIT 250 ML IV SCH (08:26)
[2022-03-22] MEDS ORDERED: levoFLOXacin 500MG 100 ML IV SCH (10:00)
[2022-03-22] MEDS: ENOXAPARIN SOD 100 MG/1 ML SYRINGE SC SCH ×2 (10:55→20:57)
[2022-03-22] MEDS: PANTOPRAZOLE 40 MG/10 ML VIAL INJ IV SCH (10:55)
[2022-03-22] MEDS: SODIUM CHLOR 0.9% PF (SALINE LOCK) 10ML VIAL/SYR IV SCH ×2 (10:55→20:57)
[2022-03-22] MEDS ORDERED: SODIUM CHLORIDE 0.9% 500 ML IV ONE (14:15)
[2022-03-22] MEDS: SODIUM CHLORIDE 0.9% 1,000 ML IV SCH (15:27)
[2022-03-22] MEDS: CEFTRIAXONE SODIUM 2 GM in D5W 5% 50 ML IV SCH (15:28)
[2022-03-22] MEDS: ALBUTEROL SULF 2.5 MG/0.5ML(0.5%) NEB SOLN NEB PRN ×2 (17:57→21:52)
[2022-03-22] MEDS: Nepro With Carb Steady 1 Liter Bottle GT SCH (18:16)
[2022-03-23] VITALS (105 sets, daily range): BP systolic 84–133; BP diastolic 44–75
[2022-03-23] MEDS: FREE WATER GT SCH ×4 (00:05→18:11)
[2022-03-23] MEDS: ACCU-CHEK COMFORT CURVE STRIP VI SCH ×4 (00:06→18:08)
[2022-03-23] MEDS: SODIUM CHLORIDE 0.9% 1,000 ML IV SCH (02:34)
[2022-03-23] MEDS: NOREPINEPHRINE 8 MG/250ML KIT 250 ML IV SCH (04:53)
[2022-03-23] MEDS: InsuLIN REG 1unit/0.01ml Soln (100units/ml) SC SCH ×4 (06:00→18:00)
[2022-03-23] MEDS: IPRATROPIUM BROM 0.5 MG/2.5ML INH SOL NEB SCH ×5 (06:14→22:01)
[2022-03-23] MEDS: ALBUTEROL SULF 2.5 MG/0.5ML(0.5%) NEB SOLN NEB PRN ×4 (06:14→18:34)
[2022-03-23] MEDS: INSULIN LANTUS (GLARGINE) 1 /0.01ml (100units/ml) SC SCH (06:21)
[2022-03-23 06:37] LABS: Basophils # (auto) 0.1 10 ^3/uL (0-0.2); Eosinophils # (auto) 0.2 10 ^3/uL (0-0.8); Hemoglobin 8.2 g/dL (13.5-17.5); White Blood Cell 13.9 10^3/uL (4.4-10.8)
[2022-03-23 06:40] LABS: Basophils % (auto) 0.7 % (0.0-2.0); Eosinophils % (auto) 1.1 % (0.0-7.0); Hematocrit 25.9 % (41.0-53.0); Lymphocytes # (auto) 2.2 10 ^3/uL (0.4-5.4); Lymphocytes % (auto) 15.6 % (10.0-50.0); Mean Corpuscular Hemoglobin 27.7 pg (28.0-32.0); Mean Corpuscular Hgb Conc. 31.5 g/dL (32.0-36.0); Mean Corpuscular Volume 87.8 fL (80.0-100.0); Monocytes # (auto) 0.7 10 ^3/uL (0-1.3); Monocytes % (auto) 4.9 % (0.0-12.0); Neutrophils # (auto) 10.8 10 ^3/uL (1.6-8.6); Neutrophils % (auto) 77.7 % (37.0-80.0); Nucleated Red Blood Cells % 0.1 %; Red Blood Cells 2.95 10^6/uL (4.5-5.90); Red Cell Distribution Width 15.2 % (11.8-14.3)
[2022-03-23 07:12] LABS: Albumin 1.3 g/dL (3.4-5.0); Potassium 3.7 mmol/L (3.5-5.1)
[2022-03-23 07:16] LABS: BUN/Creatinine Ratio 37.3; Bilirubin, Total 0.4 mg/dL (0.2-1.0); Phosphorus 3.8 mg/dL (2.5-4.90); Total Protein 5.6 g/dL (6.4-8.2)
[2022-03-23] MEDS: CALCIUM ACETATE 667 MG CAP PO SCH ×3 (08:07→18:11)
[2022-03-23] MEDS: PANTOPRAZOLE 40 MG/10 ML VIAL INJ IV SCH (10:09)
[2022-03-23] MEDS: SODIUM CHLOR 0.9% PF (SALINE LOCK) 10ML VIAL/SYR IV SCH ×2 (10:09→21:39)
[2022-03-23] MEDS: ENOXAPARIN SOD 100 MG/1 ML SYRINGE SC SCH ×2 (10:09→21:40)
[2022-03-23] MEDS: levoFLOXacin 500MG 100 ML IV SCH (12:08)
[2022-03-23] MEDS: CEFTRIAXONE SODIUM 2 GM in D5W 5% 50 ML IV SCH (14:16)
[2022-03-23] MEDS ORDERED: ALBUTEROL MEDNEB 2.5 mg/3ml NEB ONE (18:09)
[2022-03-23] MEDS: MIDAZOLAM DRIP 50 mg/50mL 50 ML IV SCH (23:15)
[2022-03-24] VITALS (86 sets, daily range): BP systolic 51–128; BP diastolic 27–75
[2022-03-24] MEDS: FREE WATER GT SCH ×4 (00:19→18:00)
[2022-03-24] MEDS: ACCU-CHEK COMFORT CURVE STRIP VI SCH ×4 (00:19→18:28)
[2022-03-24 05:20] LABS: Basophils # (auto) 0 10 ^3/uL (0-0.2); Eosinophils # (auto) 0.1 10 ^3/uL (0-0.8); Eosinophils % (auto) 0.8 % (0.0-7.0); Red Cell Distribution Width 14.9 % (11.8-14.3)
[2022-03-24 05:24] LABS: Basophils % (auto) 0.3 % (0.0-2.0); Hematocrit 24.4 % (41.0-53.0); Lymphocytes # (auto) 1.7 10 ^3/uL (0.4-5.4); Lymphocytes % (auto) 17.3 % (10.0-50.0); Mean Corpuscular Hemoglobin 29.1 pg (28.0-32.0); Mean Corpuscular Hgb Conc. 32.9 g/dL (32.0-36.0); Mean Corpuscular Volume 88.6 fL (80.0-100.0); Monocytes # (auto) 0.5 10 ^3/uL (0-1.3); Monocytes % (auto) 4.8 % (0.0-12.0); Neutrophils # (auto) 7.5 10 ^3/uL (1.6-8.6); Neutrophils % (auto) 76.8 % (37.0-80.0); Nucleated Red Blood Cells % 0.1 %; Red Blood Cells 2.76 10^6/uL (4.5-5.90); White Blood Cell 9.7 10^3/uL (4.4-10.8)
[2022-03-24 05:39] LABS: Potassium 3.7 mmol/L (3.5-5.1)
[2022-03-24 05:44] LABS: Albumin 1.3 g/dL (3.4-5.0); BUN/Creatinine Ratio 32.1; Calcium 8.2 mg/dL (8.5-10.1)
[2022-03-24 05:46] LABS: Bilirubin, Total 0.4 mg/dL (0.2-1.0); Total Protein 5.7 g/dL (6.4-8.2)
[2022-03-24] MEDS: InsuLIN REG 1unit/0.01ml Soln (100units/ml) SC SCH ×4 (06:00→18:00)
[2022-03-24] MEDS: IPRATROPIUM BROM 0.5 MG/2.5ML INH SOL NEB SCH ×5 (06:08→21:58)
[2022-03-24] MEDS: CALCIUM ACETATE 667 MG CAP PO SCH ×3 (08:00→18:00)
[2022-03-24] MEDS: NOREPINEPHRINE 8 MG/250ML KIT 250 ML IV SCH ×2 (09:00→17:11)
[2022-03-24] MEDS: levoFLOXacin 500MG 100 ML IV SCH (10:06)
[2022-03-24] MEDS: PANTOPRAZOLE 40 MG/10 ML VIAL INJ IV SCH (10:06)
[2022-03-24] MEDS: ENOXAPARIN SOD 100 MG/1 ML SYRINGE SC SCH (10:07)
[2022-03-24] MEDS: SODIUM CHLOR 0.9% PF (SALINE LOCK) 10ML VIAL/SYR IV SCH (10:07)
[2022-03-24] MEDS: CEFTRIAXONE SODIUM 2 GM in D5W 5% 50 ML IV SCH (14:24)
[2022-03-24] MEDS ORDERED: FUROSEMIDE 20 MG/2 ML VIAL IV ONE (16:00)
[2022-03-24] MEDS ORDERED: ALBUTEROL MEDNEB 2.5 mg/3ml NEB ONE ×2 (18:02→21:57)
[2022-03-24] MEDS: ALBUTEROL SULF 2.5 MG/0.5ML(0.5%) NEB SOLN NEB PRN ×2 (18:35→21:58)
[2022-03-24] MEDS ORDERED: EPINEPHrine HCL 250 ML IV ONE (21:29)
[2022-03-24] MEDS ORDERED: EPINEPHrine HCL 250 ML IV SCH (21:30)
[2022-03-24] MEDS ORDERED: VASOPRESSIN 50 UNITS in D5W 5% 247.5 ML IV SCH (21:45)
[2022-03-24] MEDS ORDERED: VASOPRESSIN 20 UNIT/ML ONE (21:49)
[2022-03-24] MEDS ORDERED: SODIUM BICARBONATE 8.4% INJ 50ML SYRINGE ONE (21:49)
[2022-03-24 22:14] LABS: BUN/Creatinine Ratio 24.4; Calcium 10.1 mg/dL (8.5-10.1); Magnesium 2.4 mg/dL (1.6-2.6); Potassium 5.5 mmol/L (3.5-5.1)
[2022-03-24 22:19] LABS: Hematocrit 19.5 % (41.0-53.0); Mean Corpuscular Hemoglobin 29.1 pg (28.0-32.0); Mean Corpuscular Hgb Conc. 31.7 g/dL (32.0-36.0); Mean Corpuscular Volume 91.9 fL (80.0-100.0); Red Blood Cells 2.13 10^6/uL (4.5-5.90); Red Cell Distribution Width 15.2 % (11.8-14.3); White Blood Cell 11.8 10^3/uL (4.4-10.8)
[2022-03-24 22:22] LABS: Hemoglobin 6.2 g/dL (13.5-17.5); INR 1.23 (0.9-1.15); Partial Thromboplastin Time 32.8 sec (24.6-33.4)
[2022-03-24 22:23] LABS: Basophils % (manual) 0 (0.0-2.0); Blast Cells 0; Myelocytes % 0; Promyelocytes % 0
[2022-03-24] MEDS ORDERED: ALBUMIN 5% 50 ML IV ONE (22:30)
[2022-03-24 22:35] LABS: Band Neutrophils % (manual) 14; Eosinophils % (manual) 2 (0-7); Lymphocytes % (manual) 31 (10.0-50.0); Metamyelocytes % 3; Monocytes % (manual) 2 (0-12); Reactive Lymphocytes 1
[2022-03-25] VITALS: BP 0/0
== END 2022-03-24 23:55 | DRG 870 ==
LOC: ER 13:36 → EDBD 13:36 → TELE 18:38 → ICU CENTRL 03-12 09:02
PROVIDERS: ADMIT Registered Nurse; ATTEND Internal Medicine
PROC: 02HV33Z Insertion of Infusion Device into Superior Vena Cava, Percutaneous Approach (ICD-10-PCS; principal; 2022-03-12)
PROC: 5A1955Z Respiratory Ventilation, Greater than 96 Consecutive Hours (ICD-10-PCS; 2022-03-12)
PROC: 0BH17EZ Insertion of Endotracheal Airway into Trachea, Via Natural or Artificial Opening (ICD-10-PCS; 2022-03-12)
PROC: B548ZZA Ultrasonography of Superior Vena Cava, Guidance (ICD-10-PCS; 2022-03-12)
PROC: 5A12012 Performance of Cardiac Output, Single, Manual (ICD-10-PCS; 2022-03-24)
DX: A40.3 Sepsis due to Streptococcus pneumoniae (principal); J18.9 Pneumonia, unspecified organism; J96.01 Acute respiratory failure with hypoxia; R65.21 Severe sepsis with septic shock; N17.0 Acute kidney failure with tubular necrosis; K72.00 Acute and subacute hepatic failure without coma; G93.41 Metabolic encephalopathy; J15.4 Pneumonia due to other streptococci; E87.20 Acidosis, unspecified; I48.92 Unspecified atrial flutter; N39.0 Urinary tract infection, site not specified; D68.69 Other thrombophilia; E44.0 Moderate protein-calorie malnutrition; E87.4 Mixed disorder of acid-base balance; J98.11 Atelectasis; E87.0 Hyperosmolality and hypernatremia; Z20.822 Contact with and (suspected) exposure to COVID-19; E78.5 Hyperlipidemia, unspecified; E11.22 Type 2 diabetes mellitus with diabetic chronic kidney disease; E11.65 Type 2 diabetes mellitus with hyperglycemia; E66.01 Morbid (severe) obesity due to excess calories; E88.09 Other disorders of plasma-protein metabolism, not elsewhere classified; E83.39 Other disorders of phosphorus metabolism; N20.0 Calculus of kidney; F10.10 Alcohol abuse, uncomplicated; H66.90 Otitis media, unspecified, unspecified ear; I12.9 Hypertensive chronic kidney disease with stage 1 through stage 4 chronic kidney disease, or unspecified chronic kidney disease; I48.91 Unspecified atrial fibrillation; I70.0 Atherosclerosis of aorta; N18.9 Chronic kidney disease, unspecified; D69.6 Thrombocytopenia, unspecified; E03.9 Hypothyroidism, unspecified; E78.1 Pure hyperglyceridemia; I50.9 Heart failure, unspecified; Z68.32 Body mass index [BMI] 32.0-32.9, adult
CPT/HCPCS: 36415; 36569; 36600; 70450; 71045; 71250; 74176; 76775; 80048; 80053; 80061; 80307; 80320; 81003; 82570; 82805; 82962; 83036; 83605; 83690; 83735; 83880; 84100; 84132; 84156; 84300; 84439; 84443; 84481; 84484; 85007; 85025; 85027; 85379; 85610; 85730; 86704; 86706; 86708; 86803; 86850; 86900; 86901; 87040; 87070; 87077; 87081; 87086; 87186; 87205; 87340; 87426; 87804; 87807; 92950; 93005; 93306; 93925; 93970; 94002; 94003; 94640; 96365; 96367; 96368; 96375; 99291; C9113; G0378; J0171; J0696; J1100; J1815; J1956; J2185; J2250; J3480; J7060; P9047